=== PATIENT | female | born 1990 | race Caucasian/White ===

== ENCOUNTER → 2018-04-20 | Outpatient (CLI) | payer OTHER ==
[2016-01-13 17:00] VITALS: BMI 29.4
[~2018-04-20] MED LIST: ACE500 PO; ACET-1966 PO; AZI250 PO; CALC-515 PO; IBUP800T37 PO; IRON150C19 PO; LOR5 PO; OXYC-373 PO; PREN-127 PO; PSYL0.5241 PO; PSYL660P PO
--- NOTE | 2018-04-20 14:52 | RADIOLOGY IMAGING REPORT ---
FACILITY: [facility] PATIENT NAME: Rosalinda Gamez : 1990 MR: [id number] V: [id number] EXAM DATE: ORDERING PHYSICIAN: EDUARDO ZAMBRANO TECHNOLOGIST: Location: [facility] Patient: Rosalinda Gamez : 1990 Visit/Account:[id number] Date of Sevice: 04/20/2018 [facility] OB ANATOMICAL SURVEY Comparisons: None. HISTORY: Supervision of high risk in the second trimester. FINDINGS: There is a living single intrauterine in variable position with a heart rate of 150 b eats per minutes. Placenta is posterior in transverse. Amniotic fluid volume is appropriate with an ANITHA of 16.6 cm. anatomy including intracranial structures, facial structures, spinal structures, sacrum, four-c hamber view the heart, outflow tracts, stomach,, bladder and three-vessel cord and cord insertion are within normal limits on today's exam. 4 normal-appearing extremities are noted. Biometry: BPD: 55 mm corresponding to 22 weeks 6 days. Head circumference: 197 cm corresponding to 22 weeks 0 days. Abdominal circumference: 197 mm corresponding to 24 weeks 3 days Femur length: 34 mm corresponding to 20 weeks 6 days. Estimated weight is 531 g. IMPRESSION: 1. Living single intrauterine at 22 weeks 4 days by today's ultrasound. 2. Unremarkable survey. Report Dictated By: Jaiden Gar MD at 04/20/2018 2:44 PM Report E-Signed By: Jaiden Gar MD at 04/20/2018 2:49 PM WSN:[email or web address]
== END ==
LOC: RAD 09:15
PROVIDERS: ATTEND Obstetrics & Gynecology
DX: Z02.9 Encounter for administrative examinations, unspecified (principal)

== ENCOUNTER → 2018-06-14 | Outpatient (CLI) | payer OTHER ==
[2016-01-13 17:00] VITALS: BMI 29.4
[~2018-06-14] MED LIST changes: +DIPH0.5D12 IM; +FLU60VIA41 IM
[2018-06-14 11:32] LABS: PLATELET COUNT, AUTOMATED 194 K/uL (150-450)
== END ==
LOC: LAB 10:49
PROVIDERS: ATTEND Obstetrics & Gynecology
DX: Z34.02 Encounter for supervision of normal first pregnancy, second trimester (principal)
CPT/HCPCS: 36415; 82950; 85025

== ENCOUNTER → 2018-08-25 | Outpatient (CLI) | payer OTHER ==
[~2018-08-25] VITALS: Ht 170.2 cm; Wt 83.9 kg
[~2018-08-25] MED LIST changes: +DOCU-416 PO; +FERR-53 PO; +LR(*) 1000 ML BAG 1,000 ML IV PRN
[2018-08-25 22:00] VITALS: BP 134/79; Ht 170.2 cm; Wt 83.9 kg
[2018-08-25 23:30] VITALS: BP 119/56
== END ==
LOC: L&D 08-25 21:49 → OB 21:49 → UNDOADMIN 21:49 → UNDODISIN 23:56 → EDSTATUS 09-01 07:30
PROVIDERS: ATTEND Obstetrics & Gynecology
DX: O62.0 Primary inadequate contractions (principal); Z3A.38 38 weeks gestation of pregnancy
CPT/HCPCS: 81001

== ENCOUNTER 2018-09-01 05:25 | Inpatient (IN) | payer OTHER ==
[2018-09-01] VITALS (15 sets, daily range): BP systolic 108–126; BP diastolic 53–78; Ht 170.2 cm; Wt 84.4 kg
[~2018-09-01] VITALS: Ht 170.2 cm; Wt 84.4 kg
[~2018-09-01 05:25] MED LIST changes: -LR(*) 1000 ML BAG 1,000 ML IV PRN
[2018-09-01] MEDS ORDERED: ceFAZolin(*) 2GM/D5W 50ML 50 ML IVPB ONE (05:26)
[2018-09-01] MEDS ORDERED: ONDANSETRON 4 MG/2 ML VIAL IVP ONE (05:30)
[2018-09-01] MEDS ORDERED: CITRIC ACID/SOD CITRATE 30 ML PO ONE ×2 (05:30→06:25)
[2018-09-01] MEDS ORDERED: FAMOTIDINE 20 MG/50 ML PREMIX IVPB ONE (05:30)
[2018-09-01 06:27] LABS: PLATELET COUNT, AUTOMATED 189 K/uL (150-450)
[2018-09-01] MEDS ORDERED: CITRIC ACID/SOD CIT 15 ML UDC ONE (06:27)
[2018-09-01] MEDS: LR(*) 1000 ML BAG 1,000 ML IV SCH ×2 (06:38→06:39)
[2018-09-01] MEDS ORDERED: OXYTOCIN 10 UNIT/ML SDV ONE (06:52)
[2018-09-01] MEDS ORDERED: MORPHINE PF 5 MG/10 ML AMP ONE (06:53)
[2018-09-01] MEDS ORDERED: fentaNYL CITR 100 MCG/2 ML AMP ONE (06:53)
--- NOTE | 2018-09-01 07:21 | History & Physical ---
History of Present Illness EDC per U/S: Sep 06, 2018 Estimated Gestational Age: 39.2 Chief Complaint Repeat History of Present Illness 28yo at 39w2d presents for repeat CD. PNC by IMG. PNR reviewed. c/b hx of for macrosomia and size>dates. See PNR. History Patient's Blood Type: A Positive Rubella Status: Immune Group B Strep Screen: Negative Obstetrical History: G1: SAB G2: 38wk PLTCD for macrosomia G3: Current Past Medical History: PMH: None PSH: , wisdom teeth Allergies: Coded Allergies: latex (Verified Allergy, Severe, HIVES, 01/12/16) strawberry (Unverified Allergy, Mild, 02/16/18) Social History: No T/E/D. . Family History: Blood clots FATHER, Age:60 FH: asthma MOTHER, Age:58 FH: type 2 diabetes Maternal grandfather Med Rec Home Meds Active Scripts Docusate Sodium (COLACE) 100 Mg Capsule, 100 MG PO BID, #60 CAPSULE 2 Refills Prov:EDUARDO ZAMBRANO MD 08/08/18 Ferrous Sulfate (FERROUS SULFATE) 325 Mg Tablet, 325 MG PO BID, #60 TAB 2 Refills Prov:EDUARDO ZAMBRANO MD 08/08/18 Reported Medications Psyllium Husk (METAMUCIL) 0.52 Gm Capsule, 0.52 GM PO PRN, CAPSULE 04/20/18 Calcium Carbonate (TUMS) 200 Mg Tab.chew, 200 MG PO, TAB.CHEW 04/20/18 Vits W-Ca,Fe,Fa(<1MG) ( VITAMINS) 1 Each Tablet, 1 EACH PO DAILY, TAB 01/12/16 Review of Systems Constitutional: No Fever Neurological: No Syncope Eyes: No Vision Change Cardiovascular: No Chest Pain Respiratory: No Shortness of Breath, No Cough Gastrointestinal: No Nausea, No Vomiting, No Diarrhea Genitourinary: No Dysuria Musculoskeletal: No Pain Psychiatric: No Depression, No Anxiety Exam General Exam Vital Signs Vital Signs Date Time Temp Pulse Resp B/P (MAP) Pulse Ox O2 Delivery O2 Flow Rate FiO2 09/01/18 06:00 97.8 81 16 123/75 (91) 96 Room Air General Apperance: Alert/Awake/No Acute Distress Neuro: No Gross deficits Eyes: Normal Extraocular Movement & Vison Cardiovascular: Regular Rate and Rhythm Respiratory: No Respiratory Distress, Clear to Auscultation Abdomen: Gravid - Non-Tender Musculoskeletal: No Weakness/Pain Extremities: No Cyanosis,Clubbing or Edema Integumentary: Skin Intact without Lesions or Rash Psychological: Alert & Oriented X3, Appropriate Mood & Affect Uterine Contractions(Q min): 3 Uterine Contraction Strength: Mild UC Resting Tone: Soft Fetus Feeling Movement?: Yes FHT Category: I Medical Decision Making Data Points Result Diagram: 09/01/18 0550 Assessment and Plan Problems: (1) History of delivery affecting Assessment & Plan: 28yo at 39w2d presents for repeat . Discussed R/B/A of surgery. Will proceed to OR. (2) 39 weeks gestation of EDUARDO ZAMBRANO MD Sep 01, 2018 07:20
[2018-09-01] MEDS ORDERED: ePHEDrine 25 MG/5 ML DISP.SYR IVP ONE (07:30)
[2018-09-01] MEDS ORDERED: KETOROLAC 30 MG/ML VIAL ONE (08:05)
[2018-09-01] MEDS ORDERED: OXYTOCIN 30 UNIT/LR 500 ML 500 ML IV PRN (08:22)
--- NOTE | 2018-09-01 08:22 | Post Operative Note ---
Operative Note - ACIDIZER HELPER Operative Day Date: Sep 01, 2018 Physicians Surgeon: Keyur Adaptive Physical Education Specialist: Jovon [facility] Pre-Op Diagnosis: IUP at 39w2d with history of delivery Macrosomia Post-Op Diagnosis: Same Viable male, 0745hrs, 4438g (9#12oz), Apgars 9/9 Procedure Procedure(s): RLTCD Fluids Fluids: IVF: 800cc UOP: 200cc Estimated Blood Loss: 700cc EDUARDO ZAMBRANO MD Sep 01, 2018 08:22
[2018-09-01] MEDS ORDERED: PROMETHAZINE 25 MG/ML 1 ML AMP IVP PRN (08:25)
[2018-09-01] MEDS ORDERED: MAGNESIUM HYDROXIDE* 30ML UDCP PO PRN (08:25)
[2018-09-01] MEDS ORDERED: ONDANSETRON 4 MG/2 ML VIAL IVP PRN (08:25)
[2018-09-01] MEDS ORDERED: ACETAMINOPHEN 325 MG TAB PO PRN (08:25)
[2018-09-01] MEDS ORDERED: OXYTOCIN 30 UNIT/D5LR 500 ML 500 ML ONE (08:40)
[2018-09-01] MEDS ORDERED: OXYTOCIN 30 UNIT/D5LR 500 ML 500 ML IV PRN (08:50)
[2018-09-01] MEDS: DOCUSATE CALCIUM 240 MG CAP PO SCH ×2 (09:00→20:09)
[2018-09-01] MEDS: FAMOTIDINE 20 MG TAB PO SCH ×2 (09:00→20:09)
--- NOTE | 2018-09-01 09:04 | Anesthesia OB Pre-Anes Eval ---
History of Present Illness Anesthesia Start Date: Sep 01, 2018 Anesthesia Start Time: 07:15 OB Anesthesia Diagnosis: repeat c/section EDC: Sep 06, 2018 : 3 Para: 1 Vital Signs: Vital Signs Date Time Temp Pulse Resp B/P (MAP) Pulse Ox O2 Delivery O2 Flow Rate FiO2 09/01/18 08:25 66 16 Nasal Cannula 0.5 09/01/18 06:00 97.8 123/75 (91) 96 Pain Ratin Result Diagram: 09/01/18 0550 Height (Inches): 67.00 Weight (Pounds): 186 Past Medical History Medical History: no pertinent history Surgical History: noncontributory Previous Anesthesia: spinal Attended Childbirth Classes?: No Hx Anesthesia Reactions: No Hx Family Anesthesia Reaction: No Home Meds Active Scripts Docusate Sodium (COLACE) 100 Mg Capsule, 100 MG PO BID, #60 CAPSULE 2 Refills Prov:EDUARDO ZAMBRANO MD 08/08/18 Ferrous Sulfate (FERROUS SULFATE) 325 Mg Tablet, 325 MG PO BID, #60 TAB 2 Refills Prov:EDUARDO ZAMBRANO MD 08/08/18 Reported Medications Psyllium Husk (METAMUCIL) 0.52 Gm Capsule, 0.52 GM PO PRN, CAPSULE 04/20/18 Calcium Carbonate (TUMS) 200 Mg Tab.chew, 200 MG PO, TAB.CHEW 04/20/18 Vits W-Ca,Fe,Fa(<1MG) ( VITAMINS) 1 Each Tablet, 1 EACH PO DAILY, TAB 01/12/16 Allergies: Coded Allergies: latex (Verified Allergy, Severe, HIVES, 01/12/16) strawberry (Unverified Allergy, Mild, 02/16/18) Anesthesia OB ROS Neurological: No migraines/headaches, No seizures, No neuropathy, No other ENT: Denies Tooth caps, Denies Loose teeth, Denies Chipped teeth, Denies D entures, Denies Bridges, Denies Retainers, Denies Veneers, Denies Implants, Denies Tongue ring, Denies Other Pulmonary: No asthma, No smoker (pks/day/yrs), No other Airway Class: ll Cardiovascular ROS: No edema, No arrhythmia, No other GI ROS: NPO ROS: No Herpes, No STD(s), No Liver Disease, No Renal Disease, No Other Endocrine ROS: No diabetes, No gestational diabetes, No thyroid disorder, No other Musculoskeletal ROS: No low back pain, No low back injury, No scoliosis, No other ASA Classification: 2 Assessment and Plan Anesthesia Plan: SAB Anesthesia Stop Day: Sep 01, 2018 Anesthesia Stop Time: 08:22 BERNADETTE JACOME CRNA Sep 01, 2018 09:04
--- NOTE | 2018-09-01 09:06 | Procedure Note ---
Anesthetic Placement Note Anesthesia Plan: SAB Permit for Anesthesia Signed: Yes Anesthesia Technique: Patient Sitting Anesthesia Prep: Chlorhexidine Interspace: L 4-5 Local Anesthetic: 1% Lidocaine, 25 Gauge Needle Amount Local - cc's: 3 Anesthesia Needle: 25g Pencan w/Introducer Anesthesia Attempts: 1 Cerebral Spinal Fluid: Yes, Clear Anesthesia Tray: Lot Number ([id number]), Expiration Date (07-21-2019), Reference Number ([id number]) Anesthesia Medications: Intrathecal Dose: mcg Fentanyl (15), mg Marcaine MPF, mg Astromorph (0.15), mg Spinal Bupivicaine (12), Time (6349) Complications: None BERNADETTE JACOME CRNA Sep 01, 2018 09:06
--- NOTE | 2018-09-01 09:44 | OPERATIVE REPORT 1 ---
EVENT DATE: September 01, 2018 SURGEON: Maureen Baer MD ANESTHESIOLOGIST: Duarte Coates CRNA ANESTHESIA: Spinal. TRAINING EXECUTIVE: Ruben Sigala MD PREOPERATIVE DIAGNOSIS 1. Intrauterine at 39 weeks and 2 days with history of delivery and desire for repeat. 2. macrosomia. POSTOPERATIVE DIAGNOSIS 1. Intrauterine at 39 weeks and 2 days with history of delivery and desire for repeat. 2. macrosomia. 3. Delivery of a viable male infant at 07:45 hours, weighing 4438 grams or 9 lbs. 12 oz. with Apgars of 9 at 1 minute and 9 at 5 minutes. PROCEDURE PERFORMED Repeat low transverse delivery. IV FLUIDS 800 cc. URINE OUTPUT 200 cc. ESTIMATED BLOOD LOSS 700 cc. INDICATION FOR PROCEDURE This patient is a 28-year-old 3, para 1, 011 who presents at 39 weeks and 2 days for a repeat delivery. Her was complicated by a history of for macrosomia and suspected macrosomia in this as well. She was admitted for the above said procedure. Please see History and Physical for full details. DESCRIPTION OF PROCEDURE The patient was properly identified and taken to the operating room. She was placed under spinal anesthetic and then placed in supine position. A Damian catheter was then placed and then she was placed with a leftward tilt. She was then prepped and draped in the usual fashion for a lower abdominal surgery and adequate anesthesia was confirmed. Her prior Pfannenstiel incision was excised with a scalpel and this incision was carried down to the level of the rectus fascia. The fascia was then nicked in the midline and the incision was extended sharply. The rectus fascia was from the underlying rectus muscle superiorly to the infraumbilical plate and inferiorly to the dome of the bladder. The peritoneum was then identified and entered with a hemostat. There were no intraabdominal adhesions at this time. This incision was then extended inferiorly to allow delivery of the . A bladder blade was then placed and the vesicouterine peritoneum was relieved off the lower uterine segment. A transverse incision was made on the lower uterine segment revealing intact membranes. The membranes were then ruptured and noted to be clear. The 's vertex was then delivered through the uterine incision without difficulty, followed by the posterior shoulder and anterior shoulder. The remainder of the infant was then easily delivered. The had spontaneous cry and spontaneous movement of all four extremities. The oropharynx and nasopharynx were bulb suctioned and the infant was dried and stimulated. After 30 seconds, the cord was clamped times 2 and cut and the infant was passed to nursing personnel in good condition. Cord blood was then obtained and passed off the table. The placenta subsequently was delivered manually intact. This was also passed off the table. The uterus was then exteriorized and cleared of any remaining clots, debris or placenta. The uterine incision was reapproximated using an 0 Vicryl in a running locking fashion, followed by an imbricating layer of an 0 Monocryl. The uterine incision was then made hemostatic and the uterus was replaced into the abdominal cavity. The pericolic gutters were cleared of clots and debris and the uterine incision was again inspected to insure hemostasis. The peritoneum was then reapproximated using a 3-0 Monocryl, followed by reapproximation of the rectus muscle in the midline. Copious irrigation of the rectus muscle was then performed and the rectus muscle was made hemostatic with electrocautery. The rectus fascia was then reapproximated using an 0 Vicryl in a running nonlocking fashion working from one apices to the next. The subcutaneous tissue was copiously irrigated and made hemostatic with electrocautery. The subcutaneous tissue was then reapproximated using a 3-0 Monocryl. The skin was then closed with Insorb isabel. A Primapore dressing was then placed. The patient tolerated this procedure well and recovered in Labor and Delivery with her infant. All sponge, needle, instrument counts were correct at the end of this procedure. VAISHNAVI
[2018-09-01] MEDS: DLR(*) 1000 ML BAG 1,000 ML IV PRN ×2 (12:42→19:07)
--- NOTE | 2018-09-01 14:03 | OB/GYN Progress Note ---
OB Subjective Progress Notes Subjective Patient is doing well. Her pain is moderately well controlled with the spinal and Toradol. She has not yet ambulated. Her Damian is still in. She is tolerating po well. She has no concerns except that when she used Percocet the last time, this made her very groggy. OB Objective Physical Exam Vital Signs Date Time Temp Pulse Resp B/P (MAP) Pulse Ox O2 Delivery O2 Flow Rate FiO2 09/01/18 13:15 97.7 69 14 126/63 (84) 94 09/01/18 09:21 Nasal Cannula 0.5 Intake and Output 09/01/18 07:00 # Voids 1 General Appearance: Alert/Awake/No Acute Distress Neurological: No Gross deficits Eyes: Normal Extraocular Movement & Vison Cardiovascular: Normal Rhythm & Peripheral Pulses, Regular Rate and Rhythm Respiratory: No Respiratory Distress, Clear to Auscultation Abdomen: Soft, Non-Tender, Non-Distended Incision: Clean, Dry, Intact, Dressing Extremities: No Cyanosis,Clubbing or Edema Integumentary: Skin Intact without Lesions or Rash Psychological: Alert & Oriented X3, Appropriate Mood & Affect Result Diagram: 09/01/18 0550 Assessment and Plan Problems: (1) Status post section Status: Acute Assessment & Plan: POD#0 s/p RLTCD. Will change from Percocet to Lortab when she starts taking po. Otherwise, routine orders. EDUARDO ZAMBRANO MD Sep 01, 2018 14:03
[2018-09-01] MEDS: KETOROLAC 30 MG/ML VIAL IVP SCH ×2 (14:06→20:09)
[2018-09-01] MEDS: APAP/HYDROCODONE 325/5 TAB PO PRN ×3 (15:34→23:28)
[2018-09-01] MEDS: LANOLIN OINT 7 GM TUBE TP PRN (19:21)
[2018-09-02] MEDS: KETOROLAC 30 MG/ML VIAL IVP SCH (02:13)
[2018-09-02 04:55] VITALS: BP 113/73
[2018-09-02 05:56] LABS: PLATELET COUNT, AUTOMATED 135 K/uL (150-450)
[2018-09-02] MEDS: APAP/HYDROCODONE 325/5 TAB PO PRN ×4 (07:04→19:42)
[2018-09-02 08:10] VITALS: BP 118/80
--- NOTE | 2018-09-02 08:19 | OB/GYN Progress Note ---
OB Subjective Progress Notes Subjective Doing well. Pain controlled with oral medications. Tolerating regular diet. Ambulating in room. Damian still in. Normal lochia. No preeclampsia symptoms. OB Objective Physical Exam Vital Signs Date Time Temp Pulse Resp B/P (MAP) Pulse Ox O2 Delivery O2 Flow Rate FiO2 09/02/18 04:55 97.5 72 18 113/73 (86) 96 Nasal Cannula 1.0 Intake and Output 09/02/18 06:59 Intake Total 4400 ml Output Total 42802 ml Balance -9725 ml Intake Oral 0 ml IV Total 2900 ml Other 1500 ml Output Urine Total 6125 ml Estimated Blood Loss 8000 ml General Appearance: Alert/Awake/No Acute Distress Neurological: No Gross deficits Eyes: Normal Extraocular Movement & Vison Cardiovascular: Normal Rhythm & Peripheral Pulses, Regular Rate and Rhythm Respiratory: No Respiratory Distress, Clear to Auscultation Abdomen: Soft, Non-Tender, Non-Distended Incision: Clean, Dry, Intact Extremities: No Cyanosis,Clubbing or Edema Integumentary: Skin Intact without Lesions or Rash Psychological: Alert & Oriented X3, Appropriate Mood & Affect Result Diagram: 09/02/18 0544 Assessment and Plan Problems: (1) Status post section Status: Acute Assessment & Plan: POD#1 s/p PLTCD. Doing well. Damian to be removed now. Will try Lortab 1/2 tablet at some point due to feeling groggy on Lortab 1 tablet also. Otherwise, routine orders. EDUARDO ZAMBRANO MD Sep 02, 2018 08:19
[2018-09-02] MEDS ORDERED: IBUP800T37 PO (08:21)
[2018-09-02] MEDS ORDERED: LOR5/325 PO (08:21)
[2018-09-02] MEDS ORDERED: DIPHTH/TETANUS/ACEL. PERTUSSIS IM ONLY ONE (08:25)
[2018-09-02] MEDS ORDERED: INFLUENZA VIRUS VAC 0.5ML SYR IM ONLY ONE (08:25)
[2018-09-02] MEDS ORDERED: MEASLES,MUMP,RUBELLA VAC 0.5ML SUBQ ONE (08:25)
[2018-09-02] MEDS: FAMOTIDINE 20 MG TAB PO SCH ×2 (08:29→21:51)
[2018-09-02] MEDS: DOCUSATE CALCIUM 240 MG CAP PO SCH ×2 (08:29→21:51)
[2018-09-02] MEDS: IBUPROFEN 800 MG TAB PO SCH ×3 (08:29→23:59)
[2018-09-02] MEDS: SIMETHICONE 80 MG CHEW CHEW PRN ×2 (08:31→21:51)
[2018-09-02] MEDS ORDERED: IBUPROFEN 800 MG TAB PO SCH (09:00)
--- NOTE | 2018-09-02 11:19 | Anesthesia Post Eval Note ---
Anesthesia Post Eval Note Vital Signs Date Time Temp Pulse Resp B/P (MAP) Pulse Ox O2 Delivery O2 Flow Rate FiO2 09/02/18 07:00 95 Room Air 09/02/18 04:55 97.5 72 18 113/73 (86) 1.0 Pt able to participate in Eval: Yes Cardiovascular Status: Satisfactory Respiratory Status: Satisfactory Pain Managment: Satisfactory PO Nausea/Vomiting: Satisfactory Temperature Management: Satisfactory Mental Status: Satisfactory, Alert, Oriented X3 Post-Op Hydration Status: Satisfactory, Tolerating PO Well, Voiding w/o Difficulty Anesthesia Type: CSE Anesthesia Tolerance: Tolerated procedure well without apparent anesthetic complications. LP site clear, no redness or edema. Denies headache or any residual paresthesia. Vital Signs Stable, Patient comfortable and condition stable. NEVIN VANG CRNA Sep 02, 2018 11:19
[2018-09-02 13:25] VITALS: BP 115/71
[2018-09-02 19:56] VITALS: BP 131/75
[2018-09-03 00:04] VITALS: BP 124/83
[2018-09-03 03:07] VITALS: BP 119/75
[2018-09-03] MEDS: FAMOTIDINE 20 MG TAB PO SCH (07:29)
[2018-09-03] MEDS: IBUPROFEN 800 MG TAB PO SCH (07:29)
[2018-09-03] MEDS: DOCUSATE CALCIUM 240 MG CAP PO SCH (07:29)
[2018-09-03] MEDS: APAP/HYDROCODONE 325/5 TAB PO PRN (07:29)
--- NOTE | 2018-09-03 08:23 | OB/GYN Progress Note ---
OB Subjective Progress Notes Subjective Doing well. Pain controlled with oral medications. Tolerating regular diet. Ambulating. Voiding. Normal lochia. No preeclampsia symptoms. OB Objective Physical Exam Vital Signs Date Time Temp Pulse Resp B/P (MAP) Pulse Ox O2 Delivery O2 Flow Rate FiO2 09/03/18 03:07 98.3 62 16 119/75 (90) 93 Room Air 09/02/18 04:55 1.0 Intake and Output 09/03/18 06:59 Intake Total 360 ml Output Total 900 ml Balance -540 ml Intake Oral 360 ml Output Urine Total 900 ml # Voids 2 General Appearance: Alert/Awake/No Acute Distress Neurological: No Gross deficits Eyes: Normal Extraocular Movement & Vison Cardiovascular: Normal Rhythm & Peripheral Pulses, Regular Rate and Rhythm Respiratory: No Respiratory Distress, Clear to Auscultation Abdomen: Soft, Non-Tender, Non-Distended Incision: Clean, Dry, Intact Extremities: No Cyanosis,Clubbing or Edema Integumentary: Skin Intact without Lesions or Rash Psychological: Alert & Oriented X3, Appropriate Mood & Affect Result Diagram: 09/02/18 0544 Assessment and Plan Problems: (1) Status post section Status: Acute Assessment & Plan: POD#2 s/p RLTCD. Meeting milestones. Desires discharge to home today. Discussed routine expectations. Questions answered. Follow up in clinic in 2wks for incision check and 6wks for check. EDUARDO ZAMBRANO MD Sep 03, 2018 08:23
--- NOTE | 2018-09-03 08:24 | OB/GYN Discharge Summary ---
Discharge Summary Reason for Hosp/Final Diag: (1) Status post section Status: Acute Hospital Course & Plan: POD#2 s/p RLTCD. Meeting milestones. Desires discharge to home today. Discussed routine expectations. Questions answered. Follow up in clinic in 2wks for incision check and 6wks for pos tpartum check. Lates Vital Signs Vital Signs Date Time Temp Pulse Resp B/P (MAP) Pulse Ox O2 Delivery O2 Flow Rate FiO2 09/03/18 03:07 98.3 62 16 119/75 (90) 93 Room Air 09/02/18 04:55 1.0 Weight (Pounds): 186 Result Diagram: 09/02/18 0544 Condition: Improved Discharge: Home, Self Halfway Meds Active Scripts Hydrocodone Bit/Acetaminophen (HYDROCODON-ACETAMINOPHEN 5-325) 1 Each Tablet, 1 EACH PO Q4-6H PRN for pain, #20 TAB 0 Refills Prov:EDUARDO ZAMBRANO MD 09/02/18 Docusate Sodium (COLACE) 100 Mg Capsule, 100 MG PO BID, #60 CAPSULE 2 Refills Prov:EDUARDO ZAMBRANO MD 08/08/18 Ferrous Sulfate (FERROUS SULFATE) 325 Mg Tablet, 325 MG PO BID, #60 TAB 2 Refills Prov:EDUARDO ZAMBRANO MD 08/08/18 Reported Medications Psyllium Husk (METAMUCIL) 0.52 Gm Capsule, 0.52 GM PO PRN, CAPSULE 04/20/18 Calcium Carbonate (TUMS) 200 Mg Tab.chew, 200 MG PO, TAB.CHEW 04/20/18 Vits W-Ca,Fe,Fa(<1MG) ( VITAMINS) 1 Each Tablet, 1 EACH PO DAILY, TAB 01/12/16 Follow up Referrals: ELECTRICAL ENGINEERING DRAFTING OFFICER - In Two Weeks @ [facility] with EDUARDO ZAMBRANO MD Discharge Diet: As Tolerates Discharge Activity: No Heavy Lifting > 10lb, Pelvic Rest EDUARDO ZAMBRANO MD Sep 03, 2018 08:24
[2018-09-03 08:25] VITALS: BP 120/87
[2018-09-03] MEDS: LANOLIN OINT 7 GM TUBE TP PRN (08:39)
== END 2018-09-03 13:30 | disposition home or self-care (01) | DRG 788 ==
LOC: OB 05:25
PROVIDERS: ADMIT Obstetrics & Gynecology; ATTEND Obstetrics & Gynecology
PROC: 10D00Z1 Extraction of Products of Conception, Low, Open Approach (ICD-10-PCS; principal; 2018-09-01 07:30)
DX: O34.211 Maternal care for low transverse scar from previous cesarean delivery (principal); O36.63X0 Maternal care for excessive fetal growth, third trimester, not applicable or unspecified; Z3A.39 39 weeks gestation of pregnancy; Z37.0 Single live birth; Z91.040 Latex allergy status
CPT/HCPCS: 36415; 85025; 86703; 86850; 86900; 86901; J0690; J1885; J2270; J2370; J2405; J2590; J3010; J3490; J7120

== ENCOUNTER → 2019-04-12 | Outpatient (CLI) | payer OTHER ==
[2018-09-01 06:00] VITALS: BMI 29.1
[~2019-04-12] MED LIST changes: -DIPH0.5D12 IM; +DIPH0.5S2 IM; +HYDR28.33 TOP; +HYDR30SU11 RC; +LOR5/325 PO; +NORE0.3516 PO
--- NOTE | 2019-04-12 17:52 | RADIOLOGY IMAGING REPORT ---
[facility] PATIENT NAME: Rosalinda Gamez : 1990 MR: [id number] V: [id number] EXAM DATE: ORDERING PHYSICIAN: CORNELL PAUL TECHNOLOGIST: Location: [facility] Patient: Rosalinda Gamez : 1990 Visit/Account:[id number] Date of Sevice: 04/12/2019 EXAMINATION: Right Lower Extremity Venous Ultrasound HISTORY: Right knee swelling. TECHNIQUE: Ultrasound evaluation of the right lower extremity veins was performed with color and spe ctral Doppler and compression views. COMPARISON: Right knee radiographs performed today.. FINDINGS: The right common femoral, femoral, proximal deep femoral, popliteal, and segmentally visualized deep calf veins are patent and compressible, without evidence of intraluminal thrombus. The visualized up per greater saphenous vein is patent. There is a right knee joint effusion extending along the suprapatellar bursa. IMPRESSION: 1. No evidence of DVT in the right leg. 2. Right knee joint effusion, also noted on the prior radiographs. Report Dictated By: Ralph Tovar MD at 04/12/2019 5:35 PM Report E-Signed By: Ralph Tovar MD at 04/12/2019 5:44 PM WSN:[id number]
== END ==
LOC: US 16:28
PROVIDERS: ATTEND Nurse Practitioner Family
DX: M25.561 Pain in right knee (principal); R22.41 Localized swelling, mass and lump, right lower limb

== ENCOUNTER → 2019-04-12 | Outpatient (REF) | payer OTHER ==
[2018-09-01 06:00] VITALS: BMI 29.1
[2019-04-12 16:41] LABS: PLATELET COUNT, AUTOMATED 283 K/uL (150-450)
== END ==
PROVIDERS: ATTEND Nurse Practitioner Family
DX: R22.41 Localized swelling, mass and lump, right lower limb (principal)
CPT/HCPCS: 82040; 82247; 82310; 82374; 82435; 82565; 82947; 84075; 84132; 84155; 84295; 84450; 84460; 84520; 85025